=== PATIENT | male | born 1950 ===

== ENCOUNTER → 2016-12-22 | Outpatient (CLI) | payer MEDICARE, OTHER ==
[~2016-12-22] MED LIST: ASPIRIN EC81 MG PO; COREG6.25 MG PO; CPAP; CRESTOR40 MG PO; ECOTRIN325 MG PO; HYGROTON25 MG PO; IMDUR60 MG PO; LOPRESSOR25 MG PO; NITROSTAT0.4 MG SL; NORVASC10 MG PO; PLAVIX75 MG PO; PRILOSEC20 MG PO; TYLENOL EXTRA500 MG PO; VASOTEC20 MG PO; VITAMIN E400 UNI2 PO; ZETIA10 MG PO
--- NOTE | ~2016-12-22 | ESTC ---
Cardiac Perfusion Imaging Demographics Patient Name VIDA Talley Gender Male Patient Number [id number] Race Black Visit Number [id number] [place] [id number] Room Number Accession Number [id number] Height Date of 1950 Weight Age 66 year(s) BSA Referring Physician Carolina Ariza BMI Interpreting Carolina Ariza Date of study 12/22/2016 Physician MD Supervising /SARAP Vicky Reich APRN NM Technologist Franchesca Alves Ordering Physician Stress Jessica Valenzuela resource technician RDCS, RVT Stress ECG Reading Vicky Reich APRN Nurse Lebron Ren RN Physician The procedure was explained in detail to the patient. Risks, complications and alternative treatments were reviewed. Written consent was obtained. Medications Reviewed with Patient prior to Procedure. Procedure Procedure Type: Nuclear Stress Test:Pharmacological, Cardiolite Stress Test Procedure Start time: 12/22/2016 00:00 Indications: History of CAD. Risk Factors The patient risk factors include:prior PCI on 07/19/2016;obesity, treated hypercholesterolemia, treated hypertension and dyslipidemia. Conclusions Summary LV mildly enlarged. Distal small to medium inferolateral and apical moderate ischemia. LVEF:51%. Mild inferolateral and apical hypokinesia. Stress Protocols Resting ECG Sinus bradycardia. Pre-stress physical exam: Patient assessed by Wilma FINNEY prior to testing. Chest - CTA Cardio - RRR, S1, S2 Predicted HR: 154 bpm HR response: Appropriate BP response: Appropriate Reason for termination:Infusion complete ECG Findings No ECG changes suggestive of ischemia. Arrhythmias No rhythm abnormality. Symptoms No symptoms with Lexiscan infusion. Complications Procedure complication: None. Stress Interpretation Appropriate hemodynamic response to Lexiscan. No significant ST-T wave changes with Lexiscan. ECG portion is negative for ischemia by diagnostic criteria. Will correlate with nuclear images. Imaging Results High risk findings Summed scores - Summed stress score: 5 - Summed rest score: 5 - Summed difference score: 0 Stress ejection Ejection fraction:51 % EDV :149 ml ESV :73 ml Stroke volume :76 ml LV mass :165 gr LV size:Enlarged LV Normal LV function Imaging Protocols Rest Stress Isotope:Tc99m Sestamibi IV Isotope: Tc99m Sestamibi IV Isotope dose:15.5 mCi Isotope dose:46.6 mCi Date:12/22/2016 07:07 Date:12/22/2016 08:29 Technique: SPECT Technique: Gated Supine SPECT Supine Scan Time:45-60 minutes post Scan Time:45-60 minutes post injection injection Procedure Medications - Regadenoson (Lexiscan) 0.4 mg IV over 10-15 sec. I.V. 0.4 mg. Medical History Admission Data Admission date: 12/22/2016 Admission Time: 06:45 Hospital Status: Outpatient. Signatures dtt: Annita Figueroa dtd: 12/22/16 0000 Physician Self Edit
== END | disposition disaster alternative care site (69) ==
LOC: GRAD 12-17 07:15
DX: I25.10 Atherosclerotic heart disease of native coronary artery without angina pectoris (principal); E66.9 Obesity, unspecified; E78.00 Pure hypercholesterolemia, unspecified; E78.5 Hyperlipidemia, unspecified; I10 Essential (primary) hypertension
CPT/HCPCS: A9500; J2785

== ENCOUNTER → 2017-01-05 | Outpatient (CLI) | payer MEDICARE, OTHER ==
[2017-01-05 10:36] LABS: BASOPHIL % 0.7 %; EOSINOPHIL # 0.1 K/uL (0.0-0.5); EOSINOPHIL % 2.9 %; HEMOGLOBIN 14.2 g/dL (11.0-16.0); IMMATURE GRANULOCYTE % 0.2 %; LYMPHOCYTE % 23.8 %; MCH 29.8 pg (27.0-34.0); MCV 90.3 fl (83.0-98.0); MONOCYTE # 0.5 K/uL (0.0-1.0); MONOCYTE % 12.9 %; MPV 10.3 fl (9.4-12.4); NEUTROPHIL # (ANC) 2.5 K/uL (1.4-9.0); NEUTROPHIL % 59.5 %; NRBC % 0 /100WBC (0-0.00); PLATELET COUNT 165 K/uL (150-450); RBC 4.76 M/uL (3.50-5.50); WBC 4.2 K/uL (4.0-11.0)
[2017-01-05 10:46] LABS: ALBUMIN 3.5 gm/dL (3.5-5.0); ANION GAP 9.8 (10.0-19.0); BLOOD UREA NITROGEN 11 mg/dL (6-24); CALCIUM 8.8 mg/dL (8.5-10.5); CHLORIDE 109 mMol/L (96-110); CO2 27 mMol/L (22-32); CREATININE 0.8 mg/dL (0.6-1.3); ESTIMATED GFR (MDRD EQUATION) > 60; PHOSPHORUS 3.1 mg/dL (2.5-4.9); POTASSIUM 3.8 mMol/L (3.7-5.1); SODIUM 142 mMol/L (135-145)
== END | disposition disaster alternative care site (69) ==
LOC: LGSOS 10:20
PROVIDERS: Internal Medicine Interventional Cardiology
DX: I25.10 Atherosclerotic heart disease of native coronary artery without angina pectoris (principal)

== ENCOUNTER 2017-01-07 06:47 | Outpatient (CLI) | payer MEDICARE, OTHER ==
[~2017-01-07] VITALS: Ht 182.9 cm; Wt 122.3 kg
--- NOTE | ~2017-01-07 | CATH ---
Cardiac Diagnostic Report Demographics Patient Name VIDA Talley Gender Male Date of 1950 Age 66 year(s) Patient Number [id number] Date of Study 01/07/2017 Visit Number [id number] Room Number G[address] [place] [id number] Ht 182.88 cm Wt 122.3 kg Referring Carolina Primary Physician Physician Annita MUIR Performing Carolina Secondary Physician Physician Annita MUIR Diagnostic Carolina Assisting Physician Physician Annita MUIR Interventional Physician Winder Fixer Physician Findings and Conclusions Diagnostic Findings and Conclusion Calcification involving proximal coronaries. Normal LVEDP (11). Moderate diffuse disease. Patent stent. Diagnostic Recommendations Medical therapy. Procedure Description The patient was brought to the diagnostic cardiac catheterization-EP laboratory in the fasting, non-sedated state. Informed consent was obtained in the written and verbal form after the risks and benefits were explained. The patient had no further questions and agreed to proceed. The planned puncture-incision site(s) were shaved and prepped with ChloraPrep and draped in the usual sterile manner. Conscious sedation, supplemental oxygen, and pain control medications were delivered by a registered nurse under physician guidance. Surface ECG rhythm, blood pressure measurement, and pulse oximetry were monitored throughout the procedure. Arterial access. The access site was infiltrated with lidocaine. The vessel was entered with the Seldinger technique. A sheath was advanced into the vessel and used for catheter placement. Selective left coronary angiography. A catheter was advanced into the left coronary vessel ostium under Fluoroscopic guidance. Contrast was injected by hand. Images were obtained in multiple projections. Selective right coronary angiography. A catheter was advanced into the right coronary vessel ostium under fluoroscopic guidance. Contrast was injected by hand. Images were obtained in multiple projections. Left heart catheterization. A catheter was advanced across the aortic valve to the left ventricle under fluoroscopic guidance. Resting hemodynamics were obtained. Arterial artery hemostasis was achieved. The patient was transferred to a regular nursing floor via cart accompanied by a nurse. The patient left the laboratory in stable condition. Diagnostic Cath Status: Elective Procedure Procedure Type Diagnostic procedure:Angiography:, Coronary Angios w/[facility] Indications: Abnormal Stress Test and CAD. The procedure was explained in detail to the patient. Risks, complications and alternative treatments were reviewed. Written consent was obtained. Medications Reviewed with Patient prior to Procedure. Angiographic Findings Dominance: Right Cardiac Arteries and Lesion Findings LMCA: Lesion on LMCA: 20% stenosis . LAD: Type II. Diffuse moderate disease. Diagonals show moderate disease.There is a previous stent on Prox LAD Proximal subsection. There is a previous stent on Mid LAD Mid subsection. Lesion on Dist LAD: 50% stenosis . Lesion on Dist LAD: Distal subsection.50% stenosis . Comments:at apex LCx: OMs moderate diffuse disease. Lesion on Prox CX: 50% stenosis . Lesion on Dist CX: 50% stenosis . RCA: Proximal stents patent. PL moderate diffuse disease. PDA moderate diffuse disease.There is a previous stent on Prox RCA Proximal subsection. There is a previous stent on Mid RCA Mid subsection. There is a previous stent on Mid RCA Mid subsection. Lesion on Dist RCA: Proximal subsection.50% stenosis . Lesion on Dist RCA: Distal subsection.50% stenosis . Ramus: Abnormal.Moderate diffuse disease. Coronary Tree Procedure Data Procedure Date Date: 01/07/2017Start: 10:59 AMEnd: 11:37 AM Entry Locations - Retrograde Percutaneous access was performed through the Right Radial artery (Primary location). A 6 Fr sheath was inserted. Hemostasis was successfully obtained using Mechanical Compression. Closure Comments: R band with 13 cc air deployed by RT. Alethea. Procedure Medications Order and Administration + + + +-------+ !Time !Medication !Dosage !Route ! + + + +-------+ !01/07/2017 10:56 AM !Versed !1 mg !I.V. ! + + + +-------+ !01/07/2017 10:59 AM !Fentanyl !50 mcg !I.V. ! + + + +-------+ !01/07/2017 11:01 AM !Versed !1 mg !I.V. ! + + + +-------+ !01/07/2017 11:01 AM !Radial Nitroglycerin !100 mcg !I.A. ! + + + +-------+ !01/07/2017 11:02 AM !Radial 2% Lidocaine !40 mg !I.A. ! + + + +-------+ !01/07/2017 11:06 AM !Heparin (ACC_3) !5000 units !I.V. ! + + + +-------+ Devices Used - A6 Fr. BS JR 4 Diag. Catheterwas used for:Right coronary angiography. - A6 Fr. BS JL 3.5 Diag. Catheterwas used for:Left coronary angiography. Contrast Material - Isovue 395362 ml Fluoroscopy Time: Diagnostic: 5:36 minutes. Total: 5:36 minutes. Fluoroscopy Dose: Diagnostic: 1810 mGy. Total: 1810 mGy. Estimated Blood Loss: 10 ml. Medical History Performed Procedures and Imaging Results - Stress testing with SPECT MPIwas performed. Results were: Positive. Risk/Extent of ischemia was: Intermediate risk. Allergies - No known allergies. Risk Factors The patient risk factors include:prior PCI on 08/12/2016;treated hypertension, last creatinine: 0.8 mg/dl, creatinine clearance: 157.12 ml/min, dyslipidemia and prior PA . Admission Data Admission Date: 01/07/2017 Admission Time: 06:47 AM Admit Source: Other Insurance Payors: Medicare. Admission Medications + +------+------+---------+ + + + !Medication !Dosage!Times !Last !Last !Administered !Comments ! ! ! !Per !Delivery !Delivery ! ! ! ! ! !Day !Date !Time ! ! ! + +------+------+---------+ + + + !Beta Jaz ! ! ! ! !Yes ! ! !(any) ! ! ! ! ! ! ! + +------+------+---------+ + + + !Statin (any) ! ! ! ! !Yes ! ! + +------+------+---------+ + + + !Clopidogrel ! ! ! ! !Yes ! ! + +------+------+---------+ + + + !Aspirin (any)! ! ! ! !Yes ! ! + +------+------+---------+ + + + !YANNICK Inhibitor! ! ! ! !Yes ! ! !(any) ! ! ! ! ! ! ! + +------+------+---------+ + + + !Nitrates (iv ! ! ! ! !Yes ! ! !or buccal) ! ! ! ! ! ! ! + +------+------+---------+ + + + Clinical Evaluation Leading to Procedure - The patient's CAD presentation was assessed as: Stable angina. - The patient's anginal syndrome during the past two weeks was assessed as: Class II according to the [place] Cardiovascular [employer] Classification System (CCS). Anti-anginal medications were prescribed during the past two weeks. The medications are: Beta Blockers and Ca channel Blockers. Hemodynamics Condition: Rest O2 Consumption: Estimated: 266.43Heart Rate: 53 bpm Pressures (mmHg) +-----+ + !Site !Pressure ! +-----+ + !LV !129/10 ,14 ! +-----+ + !LV !132/11 ,17 ! +-----+ + !AO !137/84 (107) ! +-----+ + !LV !136/10 ,15 ! +-----+ + !AO !126/76 (100) ! +-----+ + Valve Gradients and Areas + +---------+---------+---------+ +---------+ + !Valve !Peak !Mean !Area !Index !Flow !Source ! + +---------+---------+---------+ +---------+ + !Aortic !0 !0 ! ! ! ! ! + +---------+---------+---------+ +---------+ + !Aortic !0 !0 ! ! ! ! ! + +---------+---------+---------+ +---------+ + Shunts Oxygen Values O2 Capacity 193.12 O2 Consumption 266.43 Discharge Data Discharge Date: 01/07/2017 Hospital Status: Outpatient Signatures dtt: Annita Figueroa dtd: 01/07/17 1059 Physician Self Edit
--- NOTE | ~2017-01-07 | HP ---
PATIENT'S NAME: [facility] AGE: 66 Y [address] ROOM: [place] [address] LOCATION: [facility] ADMIT DATE: 01/07/2017 History & Physical DISCHARGE DATE: 01/07/2017 FAMILY PHYSICIAN: Renata Vyas MD ATTENDING PHYSICIAN: Annita Figueroa DATE OF SERVICE: HISTORY OF PRESENT ILLNESS: Mr. Banda is a 66-year-old male patient who had a positive stress test. 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 This was a drug-eluting stent. He has been having some atypical chest discomfort unrelated to exertion. This was evaluated using a stress test which was positive for ischemia involving the inferior wall again, which is the reason for the cardiac catheterization this time. He has history of hypertension, elevated cholesterol, and he is mildly overweight. He has no history of diabetes or tobacco abuse. He does use CPAP machine. He has a prior history of PCI a number of years ago. He has no history of congestive heart failure or any diagnosed arrhythmias. His echocardiogram showed mild LVH with normal ejection fraction, mildly dilated right ventricle, and mildly dilated right atrium and his aorta was 3.9 cm, the ascending part. Today, perhaps, he came in for his cardiac catheterization. He had a noncontrast CT of the chest to look at the ascending aortic diameter which was 4 cm in his case. MEDICATIONS: 1. Amlodipine 5 mg once a day. 2. Aspirin 325 mg a day. 3. Chlorthalidone 25 mg a day. 4. Enalapril 20 mg b.i.d. 5. Isosorbide mononitrate 60 mg once a day. 6. Metoprolol 25 mg half a tablet twice a day. 7. Nitroglycerin as needed. 8. Plavix 75 mg a day. 9. Rosuvastatin 40 mg a day. 10. Vitamin E 400 units a day. ALLERGIES: NO KNOWN ALLERGIES. PAST MEDICAL HISTORY: 1. History of coronary artery disease as above. 2. History of obstructive sleep apnea. PATIENT'S NAME: [facility] AGE: 66 Y [address] ROOM: [place] [address] LOCATION: [facility] ADMIT DATE: 01/07/2017 History & Physical DISCHARGE DATE: 01/07/2017 FAMILY PHYSICIAN: Renata Vyas MD ATTENDING PHYSICIAN: Annita Figueroa 3. Moderate obesity. 4. Tonsillectomy. 5. Cervical laminectomy. 6. Colon cancer. SOCIAL HISTORY: The patient is . He denies abusing alcohol. His appetite and weight are stable. Sleep is fair. FAMILY HISTORY: No premature coronary artery disease. REVIEW OF SYSTEMS: As above. PHYSICAL EXAMINATION: VITAL SIGNS: On examination, his blood pressure is 140/80, heart rate is in the 60s and regular, respirations are 18, and afebrile. HEENT: Normal. NECK: Supple with no JVD, thyromegaly, lymphadenopathy, or carotid bruit. PMI is not well located. First and second heart sounds are regular. There are no added sounds or murmurs. CHEST: Clear to auscultation. ABDOMEN: Soft, obese. Bowel sounds are normally present. EXTREMITIES: Reveal no edema. CENTRAL NERVOUS SYSTEM: Intact. ASSESSMENT: A 66-year-old male patient who had a stent placed in July, currently presenting with atypical chest pain and positive Cardiolite study. RECOMMENDATIONS: Proceed with cardiac catheterization to evaluate his coronaries. Further management will depend on his coronary anatomy. MD LALO LOUIS/dionil /[id number] D: [id number] T: [id number] HISTORY & PHYSICAL
[~2017-01-07 06:47] MED LIST changes: -COREG6.25 MG PO; -PRILOSEC20 MG PO; -ZETIA10 MG PO
[2017-01-07] MEDS ORDERED: COREG6.25 MG PO (14:55)
[2017-01-07] MEDS ORDERED: PRILOSEC20 MG PO (14:56)
[2017-01-07] MEDS ORDERED: ZETIA10 MG PO (14:58)
== END 2017-01-07 15:50 | disposition disaster alternative care site (69) ==
LOC: GPCU 06:47 → GPOC 06:47
PROC: 4A023N7 Measurement of Cardiac Sampling and Pressure, Left Heart, Percutaneous Approach (ICD-10-PCS; principal; 2017-01-07)
PROC: B216YZZ Fluoroscopy of Right and Left Heart using Other Contrast (ICD-10-PCS; 2017-01-07)
DX: I71.4 Abdominal aortic aneurysm, without rupture (principal); Q61.02 Congenital multiple renal cysts; R94.39 Abnormal result of other cardiovascular function study; E78.00 Pure hypercholesterolemia, unspecified
CPT/HCPCS: C1894; J1644; J2001; J2250; J3010; J7030